=== PATIENT | male | born 1945 | race Caucasian/White ===

== ENCOUNTER 2016-11-09 09:22 | Emergency (ER) | payer MEDICARE, OTHER ==
[2016-11-09 09:32] VITALS: BP 159/80
--- NOTE | 2016-11-09 09:40 | EDM.PDOC ---
ED HPI GENERAL MEDICAL PROBLEM - General Chief Complaint: Neck Problem Stated Complaint: CHEST PAIN Time Seen by Provider: 11/09/16 09:34 Source of Information: Reports: Patient History Limitations: Reports: No Limitations - History of Present Illness INITIAL COMMENTS - FREE TEXT/NARRATIVE: 71-year-old male presents to the ED with cervical neck pain radiating into his left upper extremity. This is not a new problem it's been going on since at least spring he believes even late May or June. Certain movements will cause radiculopathy or severe pain radiating into the left upper extremity down towards his thumb and hand. Pain is been gradually getting worse with more frequent radiculopathy and more paresthesias in the distribution of C7 left hand. Patient can't recall any definitive cervical neck trauma in the past. Coughing will aggravate it as well as movement of his head to the left side. Onset: Gradual (Over the last 4-5 months.) Duration: Chronic, Getting Worse Location: Reports: Neck (With referred pain into the left upper extremity) Quality: Reports: Ache, Burning, Sharp, Stabbing Severity: Severe (At times.) Improves with: Reports: Rest, Other (Certain positions of his head and neck.) Worsens with: Reports: Other, Movement (Movements will exacerbate the pain and cause lancinating shooting pain down the left extremity towards the thumb. It is also worsened by coughing.) Context: Denies: Activity, Exercise, Lifting, Sick Contact, Trauma, Other Associated Symptoms: Reports: No Other Symptoms Treatments CORPORATE RELATIONS MANAGER: Reports: EKG, Other (see below) Left Neck Pain Score (Numeric/FACES): 5 - Related Data Allergies Allergy/AdvReac Type Severity Reaction Status Date / Time No Known Allergies Allergy Verified 01/15/16 07:09 Home Meds: Home Meds Aspirin [Halfprin] 81 mg PO BRK 11/09/16 [History] Fosinopril [Monopril] 20 mg PO DAILY 11/09/16 [History] Meloxicam 15 mg PO DAILY #30 tablet 11/09/16 [Rx] Metoprolol Succinate 50 mg PO BID 11/09/16 [History] Pantoprazole Sodium [Protonix] 40 mg PO ASDIRECTED 11/09/16 [History] atorvaSTATin [Lipitor] 40 mg PO BEDTIME 11/09/16 [History] Past Medical History Cardiovascular History: Reports: CAD (Patient had 6 bypasses performed after an NC in 2001.), High Cholesterol, Hypertension, NC Gastrointestinal History: Reports: Gastritis, GERD Genitourinary History: Reports: BPH Musculoskeletal History: Reports: Back Pain, Chronic (Especially into his right buttock and hip area.), Osteoarthritis Endocrine/Metabolic History: Reports: Obesity/BMI 30+ - Past Surgical History Cardiovascular Surgical History: Reports: Coronary Artery Bypass (6 bypasses performed in 2001.) Musculoskeletal Surgical History: Reports: Shoulder Surgery (Right shoulder surgery for) Social & Family History - Tobacco Use Smoking Status *Q: Former Smoker (Greater than 20 years ago.) Tobacco Use Within Last Twelve Months: Cigarettes - Living Situation & Occupation Living situation: Reports: Occupation: Retired ED ROS ENT - Review of Systems Review Of Systems: See Below Constitutional: Reports: No Symptoms, Fever HEENT: Reports: Glasses Respiratory: Reports: Shortness of Breath. Denies: Wheezing (On exertion sometimes), Pleuritic Chest Pain, Cough, Sputum, Hemoptysis Cardiovascular: Reports: Blood Pressure Problem, Dyspnea on Exertion, Edema ( Noticed increasing edema in his lower extremities over the last few months.). Denies: Chest Pain, Claudication, Lightheadedness, Orthopnea (Controlled with medication), Palpitations (Sometimes) Endocrine: Reports: No Symptoms GI/Abdominal: Reports: Other (Occasional heartburn.) : Reports: Frequency, Other (Nocturia 3) Musculoskeletal: Reports: Neck Pain, Shoulder Pain (See history of present illness see history of present illness), Back Pain (Particularly into his right buttock.) Skin: Reports: No Symptoms Neurological: Reports: Paresthesia (Left hand and arm.) Psychiatric: Reports: No Symptoms ( Referred from his neck) Hematologic/Lymphatic: Reports: No Symptoms Immunologic: Reports: No Symptoms ED EXAM, ENT - Physical Exam Exam: See Below Exam Limited By: No Limitations General Appearance: Alert, WD/WN, No Apparent Distress Eye Exam: Bilateral Eye: Normal Inspection Head: Atraumatic, Normocephalic Neck: Other (Palpable crepitus on rotation of the cervical spine. He can make radiculopathy into the left upper extremity occur by full extension. Axial traction on the cervical spine with the head deviated to the right posteriorly causes lancinating shooting pain down the left extremity compatible with nerve root irritation. It is similarly worse when the head is placed in the left lateral posterior position and axial traction applied. There is no significant muscle wasting on the left side at this time. Triceps reflexes 1+on the Lt and 2 + on the right. Pain does radiate all way down to his thumb suggesting C7 nerve root entrapment.) Respiratory/Chest: No Respiratory Distress, Lungs Clear, Normal Breath Sounds, No Accessory Muscle Use, Other (Lungs are clear at this time. He has a well- healed midline sternotomy incision from 6 coronary bypasses performed in 2001. 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 He states this is fairly new for him and may be due to the recent heat but he is also on amlodipine which may be causing some of the dependent edema.) Neurological: Alert, Oriented, CN II-XII Intact, Normal Cognition, Normal Gait, Other (Has paresthesias in his left upper extremity in the distribution of the C7 nerve root. No weakness could be appreciated in his biceps or forearm musculature. Ulnar nerve function also seem to be preserved no radial nerve deficiency identified either.). No: Normal Reflexes, No Motor/Sensory Deficits Skin: Warm, Dry, Intact, Normal Color, No Rash EKG INTERPRETATION EKG Date: 11/09/16 Time: 09:30 Rhythm: Other (Sinus bradycardia) Rate (Beats/Min): 49 [place]: LAD-Left [place] Deviation (Mild left axis deviation -5) P-Wave: Present QRS: Normal ST-T: Normal QT: Prolonged (Moderately prolonged.) Course - Vital Signs Last Recorded V/S: Last Vital Signs Temp 36.5 C 11/09/16 09:28 Pulse 52 L 11/09/16 09:28 Resp 12 11/09/16 09:28 BP 159/80 H 11/09/16 09:28 Pulse Ox 97 11/09/16 09:28 - Radiology Interpretation Free Text/Narrative:: 71-year-old male presents to the ED with gradually worsening cervical neck pain radiating to his left upper extremity. He has a chronic radiculopathy and with associated paresthesias in his left upper extremity down towards his thumb. Made worse by certain movements of his neck coughing. Examination with axial traction cervical spine I can make the pain worse with lancinating shooting electrical pain into his left upper extremity by compressing his dorsal spine. Plan MRI of the cervical spine to be done and there happened to be an opening at this time therefore will be done this morning. - Re-Assessments/Exams Free Text/Narrative Re-Assessment/Exam: 11/09/16 12:14 MRI of the cervical spine has been completed. There are no abnormalities at the C2-C3 level. There is mild diffuse both posterior disc bulge seen at the C3-C4 level with moderate bilateral neural foraminal stenosis present at C4-C5 there is moderate right-sided neural foraminal stenosis seen due to posterior lateral spurring the disc is preserved. At C5-6 there is moderate disc space narrowing diffuse posterior disc bulge is appreciated posterior lateral spurring noted on the left side causing moderate left-sided neural foraminal stenosis. The right neural foramen is also moderately narrowed at this level. At C6-C7 there is moderate to severe disc Space narrowing seen diffuse posterior disc bulge is present with mild posterior lateral spurring on both sides moderate to severe bilateral neural foraminal stenosis is noted no central canal stenosis was noted at C7-T1 there is minimal disc space narrowing posterior disc is preserved and no central canal canal stenosis or foraminal stenosis is appreciated. This would correlate with patient's current clinical symptoms of left-sided nerve root irritation. I will place him on meloxicam 15 mg once daily of helping relieve his cervical neck inflammation and left sacroiliac joint inflammation that was identified on exam today as well. He will follow-up with Dr. Denise Gonzales to arrange for neurosurgical consultation in [place]. Departure - Departure Time of Disposition: 12:00 Disposition: Home, Self-Care 01 Condition: Fair Clinical Impression: Herniation of cervical intervertebral disc with radiculopathy - Discharge Information Prescriptions: Meloxicam 15 mg PO DAILY #30 tablet Instructions: Muscle Pain, Adult Referrals: Denise Gonzales MD [Primary Care Provider] - Forms: ED Department Discharge Additional Instructions: Evaluation in the emergency room this morning in regards to gradually worsening left sided neck pain radiating to the left upper extremity in the C7 nerve root distribution. We were maria alejandra enough to get an MRI of done this morning which confirms clinical examination of C6 and C7 disc herniation posteriorly with compression of the nerve roots particularly at the C6-C7 level which would correlate with your current problem. You therefore need to see a neurosurgeon in consultation. I will let Dr. Gonzales arrange this. I did write a prescription for meloxicam 15 mg once daily that you can take that may help reduce pain and inflammation both in your neck and her left sacroiliac joint area that we identified was painful on exam today as well.
--- NOTE | 2016-11-09 11:47 | MR ---
MRI cervical spine Technique: T2 gradient echo axial images were obtained above the C2-C3 disc through the C7-T1 disc. T1 and T2-weighted sagittal images were obtained. Comparison: No previous cervical spine imaging. Findings: C2-C3: Posterior disc is preserved. No central canal stenosis or neural foraminal stenosis is seen. C3-C4: Mild diffuse posterior disc bulge is seen. Moderate bilateral neural foraminal stenosis appears to be present. No central canal stenosis is seen. C4-C5: Moderate right-sided neural foraminal stenosis is seen due to posterolateral spurring. Left neural foramen is patent. No central canal stenosis is seen. C5-C6: Moderate disc space narrowing is seen. Diffuse posterior disc bulge is seen. Posterolateral spurring noted on the left side causing moderate left-sided neural foraminal stenosis. Right neural foramen is also moderately narrowed. No central canal stenosis is seen. C6-C7: Moderate to severe disc space narrowing is seen. Diffuse posterior disc bulge seen with mild posterolateral spurring on both sides. Moderate to severe bilateral neural foraminal stenosis is noted. No central canal stenosis is seen. C7-T1: Mild disc space narrowing is seen. Posterior disc is preserved. No central canal stenosis or neural foraminal stenosis is seen. T1-T2 through T2-T3: Slight anterior disc bulging is seen. Posterior discs are maintained. No central canal stenosis or neural foraminal is seen. Cervical cord shows no abnormal signal or mass. Impression: 1. Disc space narrowing with posterior disc bulging and posterolateral spurring as described above. Multiple levels of neural foraminal stenosis are noted. Diagnostic code #3
== END 2016-11-09 12:10 | disposition home or self-care (01) ==
LOC: JD.ED 09:22
DX: M50.123 Cervical disc disorder at C6-C7 level with radiculopathy (principal); I25.10 Atherosclerotic heart disease of native coronary artery without angina pectoris; K21.9 Gastro-esophageal reflux disease without esophagitis; E66.9 Obesity, unspecified; Z68.33 Body mass index [BMI] 33.0-33.9, adult; Z95.1 Presence of aortocoronary bypass graft; Z98.890 Other specified postprocedural states; Z87.891 Personal history of nicotine dependence; Z79.82 Long term (current) use of aspirin; Z79.899 Other long term (current) drug therapy
CPT/HCPCS: 72141; 72141-26; 99283; 99284-25